=== PATIENT | female | born 1940 | race Caucasian/White ===

== ENCOUNTER 2019-08-26 12:48 | Day surgery (SDC) | payer OTHER, SELFPAY ==
[2019-08-26] VITALS (13 sets, daily range): BP systolic 127–160; BP diastolic 73–102; PULSE 81–94; RESP 12–24; TEMP 36–36.3; O2SAT 92–100
--- NOTE | 2019-08-26 13:17 | PM.PREOP ---
Pre-operative Note Interval Note History & Physical reviewed/Exam performed by Physician: Yes Changes to H&P: No
[2019-08-26] MEDS: LACTATED RINGERS 1,000 ML 42 ML IV (13:38)
--- NOTE | 2019-08-26 13:38 | SUR.PREOP ---
Patient arrived 30 minutes late for appointment. VSS. Dr Lancaster at bedside.
[2019-08-26] MEDS: CEFAZOLIN 2 GM/100 ML FROZ.PIGGY IV (14:00)
--- NOTE | 2019-08-26 14:23 | SUR.OPER ---
Supine on padded OR bed, head on pillow, arms padded and tucked at sides, legs uncrossed, safety belt at thigh, tape over blanket over lower legs .
[2019-08-26] MEDS: BUPIVACAINE 0.25% (PF) VIAL 30 ML INJ (14:28)
--- NOTE | 2019-08-26 15:44 | PM.OP.1 ---
Operative Date/Time/Diagnoses Date of procedure: 08/26/19 Time of procedure: 15:44 Pre-op diagnosis: Bilateral inguinal hernia Post-op diagnosis: same Procedure & Clinicians Procedure: Laparoscopic transabdominal preperitoneal bilateral inguinal hernia repair with mesh Same procedure as scheduled: Yes Indications: This is a 79-year-old woman with a reducible symptomatic bilateral inguinal hernia. She presents for elective laparoscopic repair Surgeon: Mansoor Lancaster Operative Notes Findings: Bilateral direct inguinal hernia defect Specimen(s): none sent Estimated Blood Loss (mL): 10 Procedure in detail: The patient was brought to the operating room and placed supine on the table. Bilateral sequential compression devices were applied. General anesthesia was induced and they were intubated with an endotracheal tube. A ball cath was placed in sterile fashion. They received 2 g ancef prior to skin incision. They were prepped and draped in sterile fashion. A time out was performed to ensure the correct patient, procedure and necessary equipment within the operating room. The skin was infiltrated with 0.25% bupivicaine. A 1 cm infra umbilical midline incision was made. The umbilical stalk was elevated the fascia sharply incised and the abdomen entered traumatically. A 10mm balloon port was placed and pneumoperitoneum was established at 15mm Hg. Insepction of the abdomen demonstrated no evidence of injury upon entry. Two 5 mm ports were then placed under direct visualization in the right and left lower quadrant lateral to the rectus muscle. A left and right direct hernias were observed. The left round ligament was identified. The peritoneum 4 cm superior to the deep inguinal ring between the medial umbilical ligament and the anterior superior iliac spine was incised. The peritoneal flap was retracted and the preperitoneal tissue was dissected off the flap beginning lateral to the inferior epigastric artery and towards the ASIS and to posterior limit of the psoas muscle to develop the lateral aspect of the pocket. Next the peritoneum medial to the inferior epigastric was mobilized towards the median umbilical ligament to develop the medial aspect of the pocket and the direct defect was reduced. The space of Retzius was fully dissected such that the Sunday's ligmament and the pubic symphysis were visible. Next, the peritoneum was mobilized off the round ligament of the uterus and the round ligament was ultimately sharpy transected to allow the mesh to sit appropriately within the pocket. A medium Bard 3D Max mesh was then placed into the abdomen and positioned such that the myopectineal orifice was completely covered with good overlap on all sides. The mesh was anchored to the pubic tubercle and to Sunday?s ligament. The peritoneal flap was then repositioned back to its original position and tacks were used to anchor it in position such that no bowel could herniate into the preperitoneal space. The area was examined for hemostasis. The right inguinal hernia was then repaired in the same fashion. The 5mm trocars were removed under direct visualization and pneumoperitoneum was deflated through the umbilical trocar, The fascia at the umbilicus was closed with 0-Vicryl in figure of 8 fashion, skin closed with 4-0 Monocyl followed by Dermabond. The sponge and instrument count at the end of the case was correct. The patient emerged from anesthsia was extubated and transferred to recovery in stable condition.
[2019-08-26] MEDS: HYDROMORPHONE 2 MG INJ 0.25 MG IV ×4 (16:02→16:25)
[2019-08-26] MEDS: fentaNYL 100 MCG/2 ML INJ 50 MCG IV ×3 (16:04→16:16)
--- NOTE | 2019-08-26 16:32 | SUR.PHASEI ---
Patient arrived in PACU complaining of discomfort. MedicatedWill continue to monitor for resolution of pain for pain relief. Patient is wide awake, restless, moaning and guarding abdomen. Will continue to monitor for resolution of pain relief.
[2019-08-26] MEDS: HYDROCODONE/ACET 5/325 TABLET 1 TAB PO ×2 (16:42→17:16)
--- NOTE | 2019-08-26 16:47 | SUR.PHASEI ---
Gave oral pain medication for continuing s/s of pain.
--- NOTE | 2019-08-26 17:19 | SUR.PHASEII ---
Gave po pain medication for c/o 8 pain.
== END 2019-08-26 17:54 | disposition home or self-care (01) ==
PROVIDERS: PCP Family Medicine; Visit Provider Surgery
PROC: 0YQ64ZZ Repair Left Inguinal Region, Percutaneous Endoscopic Approach (ICD-10-PCS; CPT 49650; principal; 2019-08-26 14:00)
DX: K40.20 Bilateral inguinal hernia, without obstruction or gangrene, not specified as recurrent (principal); I10 Essential (primary) hypertension
CPT/HCPCS: 49650; C1781; J0690; J1100; J1170; J2405; J2704; J3010

== ENCOUNTER → 2019-09-17 08:45 | Outpatient (CLI) | payer OTHER, SELFPAY ==
--- NOTE | 2019-09-17 08:48 | DI.CT.S_ITS ---
PROCEDURE: CT ABDOMEN PELVIS WO CON INDICATIONS: right groin pain TECHNIQUE: Noncontrast 5 mm thick sections acquired from the diaphragms to the symphysis. 5 mm coronal and sagittal reformats were then performed. For radiation dose reduction, the following was used: automated exposure control, adjustment of mA and/or kV according to patient size. COMPARISON: None. FINDINGS: Image quality: Excellent. ABDOMEN: Lung bases: Lung bases are clear. Heart size is normal. Coronary artery calcifications are present. Solid organs: Liver is normal in size. Gallbladder contracted. Pancreas is normal in contours. Spleen is normal in size. No adrenal nodules. Kidneys are normal in size, without hydronephrosis. Few punctate nonobstructing bilateral renal calculi. Peritoneum and bowel: Incidental colonic diverticulosis. No free fluid or air. Nodes and vessels: No retroperitoneal or mesenteric adenopathy by size criteria. Aorta and inferior vena cava are normal in caliber. Miscellaneous: No ventral hernias. PELVIS: Genitourinary: Bladder wall thickness is normal. Pessary incidentally noted Miscellaneous: Bilateral large inguinal hernias although left greater than right. Decompressed bowel loops are seen within the left inguinal hernia, and there is fluid present within the right inguinal hernia. There are also possible decompressed bowel loops at the upper aspect of the right inguinal hernia. On the left this measures up to approximately 4.3 x 5.5 cm on axial image 78 series 2. On the right, this measures up to approximately 4.6 x 3.1 cm on axial image 79 series 2. Bones: No suspicious bony lesions. No vertebral body compression fractures. Diffuse osteopenia and multilevel spondylosis. IMPRESSION: Large bilateral inguinal hernias as described above, containing bowel loops on the left, and possibly on the right. Bowel loops demonstrate decompressed appearance however technically, cannot exclude incarceration or strangulation by CT and recommend clinical correlation Incidental colonic diverticulosis. Coronary artery disease. Dictated by: Jaison Esquivel M.D. on 09/17/2019 at 9:24 Approved by: Jaison Esquivel M.D. on 09/17/2019 at 9:34
== END ==
PROVIDERS: PCP Family Medicine; Visit Provider Surgery
DX: R10.31 Right lower quadrant pain (principal); K57.90 Diverticulosis of intestine, part unspecified, without perforation or abscess without bleeding; I25.10 Atherosclerotic heart disease of native coronary artery without angina pectoris; N20.0 Calculus of kidney; K40.20 Bilateral inguinal hernia, without obstruction or gangrene, not specified as recurrent
CPT/HCPCS: 74176

== ENCOUNTER 2019-10-28 06:45 | Day surgery (SDC) | payer OTHER, SELFPAY ==
[2019-10-17 14:52] VITALS: BMI 20.1
[2019-10-28] VITALS (11 sets, daily range): BP systolic 131–158; BP diastolic 67–87; PULSE 75–84; RESP 12–23; TEMP 36.1–36.8; O2SAT 96–100; BMI 20.5
--- NOTE | 2019-10-28 | PATH_ITS ---
[facility] Accession Number: [id number] . 01 Material submitted: . PART A: hernia - CONTENTS RIGHT INGUINAL HERNIA SAC PART B: hernia - CONTENTS LEFT INGUINAL HERNIA SAC . 01 Clinical history: . OPEN ARIADNE INGUINAL HERNIA REPAIR W/MESH . 02 Diagnosis: A. Contents Right Inguinal Hernia Sac: Fibroconnective and fibroadipose tissue with reactive features and a focal mesothelial lining, consistent with hernia sac and contents. Mesh material present by gross examination. There is no evidence of malignancy. . B. Contents Left Inguinal Hernia Sac: Fibroconnective and fibroadipose tissue with reactive features, consistent with hernia sac and contents. Mesh material present by gross examination. There is no evidence of malignancy. [facility] 10/31/2019 1227 Local . 02 Electronically signed: . Viry Wells MD, Pathologist NPI- [id number] . 01 Gross description: . (A) Received in formalin, labeled contents right inguinal hernia sac, are multiple pieces of gutierrez-pink and roland-yellow rubbery fatty fibrous and membranous tissue (11.5 x 7.0 x 2.5 cm in aggregate). Some of the pieces contain an embedded clear colorless plastic mesh. Also identified is an empty cavity (up to 3.0 cm). Qc Scientist tissue submitted in cassettes A1-A3. (B) Received in formalin, labeled contents left inguinal hernia sac, is a piece of gutierrez-pink and roland-yellow fatty fibrous and membranous tissue (9.5 x 6.0 x 3.0 cm) with an embedded piece of clear colorless mesh (up to 4.5 cm). A cystic cavity (up to 7.5 cm) is identified and contains yellow clear gelatinous material. Qc Scientist tissue submitted in cassettes B1-B3. ([id number]) /MRV 10/30/2019 1459 [facility] . 02 Pathologist provided ICD-10: K40.20 . 02 CPT . 634973, [id number] Performed at: 01 [facility] [address] [place] [address], [place], [place] [id number] MD Jerzy Calderon MD Phone: [phone] Performed at: 02 [facility] [address] [place], [place] [id number] MD Alanna Elizondo MD Phone: [phone]
[2019-10-28] MEDS: LACTATED RINGERS 1,000 ML 100 ML IV (07:23)
--- NOTE | 2019-10-28 07:29 | PM.HP.1 ---
History of Present Illness History of Present Illness Date Patient Seen: 10/28/19 Time Patient Seen: 07:29 Chief complaint: [id number] OPEN ARIADNE INGUINAL HERNIA REPAIR W/MESH Narrative: This is a 79-year-old woman with bilateral recurrence at inguinal hernia presents for open bilateral inguinal hernia repair with mesh. She underwent a previous transabdominal preperitoneal bilateral repair couple months ago and shortly developed recurrence. She has some mild chronic right groin pain otherwise she is in no acute distress. She is in a usual state of health in the been no interval changes. Patient History Medical History Arthritis (Acute) Constipation (Acute) HLD (hyperlipidemia) (Acute) HTN (hypertension) (Acute) Hypoglycemia (Acute) Migraine headache (Acute) Pelvic relaxation (Acute) Pneumonia (Acute) Pre-diabetes (Acute) Surgical History History of bilateral inguinal hernia repair (Acute 08/26/19) History of tonsillectomy and adenoidectomy (Acute ~1945) Hx of cone biopsy of cervix (Acute ~1997) Hx of dilation and curettage (Acute) Family & Social History Social History: household members spouse Tobacco & Substance use: Smoking Status Never smoker alcohol intake current Substance Use Type does not use Meds Home Medications and Allergies Home Medications Medication Instructions Recorded Confirmed Type losartan 25 mg tablet 25 mg PO DAILY 08/20/19 10/28/19 History acetaminophen [Tylenol] 650 mg PO QID PRN #60 cap 08/26/19 10/28/19 Rx Allergies Allergy/AdvReac Type Severity Reaction Status Date / Time naproxen [NAPROXEN] Allergy Mild Hives Verified 10/28/19 07:11 epinephrine [EPINEPHRINE] AdvReac Mild Agitated Verified 10/28/19 07:11 lisinopril AdvReac Mild Dizzy, Verified 10/28/19 07:11 stomach ache, fast heart beat, runny nose, fatigue Penicillins AdvReac Mild Vomiting Verified 10/28/19 07:11 procaine [PROCAINE] AdvReac Mild Giddy Verified 10/28/19 07:11 Review of Systems Review of Systems Narrative: A complete review of systems is negative except as noted in the HPI Exam Vital Signs (past 8 hours): - 10/28/19 07:13 Temperature 97.0 F L Pulse Rate 75 Respiratory Rate 16 Blood Pressure 158/87 H Pulse Oximetry 98 Oxygen Delivery Method Room Air Narrative Exam Narrative: General-no acute distress, well nourished HEENT-moist mucous membranes, no scleral icterus Neck-supple, no lymphadenopathy Chest- non labored respirations, clear to auscultation bilaterally Cardiac-regular rate no peripheral edema Abdomen-soft, bilateral inguinal hernia, nontender Extremities-warm, well perfused Neurological-alert and oriented, no focal deficits Assessment & Plan Assessment and plan (1) Bilateral inguinal hernia: Current visit: No Status: Acute Assessment & Plan narrative: 79-year-old woman with bilateral recurrent inguinal hernia status post laparoscopic repair presents for open repair with mesh. We discussed the risks of the operation including recurrence bleeding infection chronic pain. Her questions have been answered and she is in agreement with this plan.
[2019-10-28] MEDS: CLINDAMYCIN 900 MG/50 ML PIGGYBACK 50 MG IV (07:45)
--- NOTE | 2019-10-28 07:59 | SUR.OPER ---
Supine on padded OR bed, head on pillow, arms secured on padded arm boards at <90 degrees abduction, legs uncrossed, safety belt at thigh, tape over blanket over lower legs.
[2019-10-28] MEDS: BUPIVACAINE 0.25% (PF) VIAL 30 ML INJ (08:03)
[2019-10-28] MEDS: LACTATED RINGERS 1,000 ML 42 ML IV (09:11)
--- NOTE | 2019-10-28 10:10 | PM.OP.1 ---
Operative Date/Time/Diagnoses Date of procedure: 10/28/19 Time of procedure: 10:10 Pre-op diagnosis: Recurrent bilateral inguinal hernia Post-op diagnosis: same Procedure & Clinicians Procedure: Open recurrent bilateral inguinal hernia with mesh Same procedure as scheduled: Yes Indications: This is a 79-year-old woman who underwent a transabdominal preperitoneal bilateral inguinal hernia repair for large direct defects 3 months ago who developed early recurrence bilaterally. She presents today for elective open bilateral inguinal hernia repair with mesh. Surgeon: Mansoor Lancaster Click Yes if Unassisted: Yes Anesthesia Type: General Operative Notes Findings: Bilaterally direct recurrent defects with a large fluid collections involving the mesh and hernia sac. Specimen(s): other (Bilateral hernia sac) Estimated Blood Loss (mL): 20 Procedure in detail: The patient was brought to the operating room and placed supine on the table. Bilateral lower extremity compression devices were applied. General anesthesia was induced and she was intubated with an LMA. She was then prepped and draped in usual sterile fashion. They received 2 g of Ancef prior to skin incision. A time-out was performed ensure the correct patient procedure necessary equipment within the operating room. 2 finger breath above the right inguinal ligament the skin was infiltrated with 0.25% bupivacaine. The skin incision was made here and the subcutaneous tissues were divided with electrocautery. The external oblique aponeurosis was exposed. The external oblique aponeurosis was then opened along the direction of its fibers. A large direct floor defect was identified. There was a mass of peritoneum, fluid collection and previous hernia mesh coming through the floor of the canal. This was meticuluously excised back to healthy peritoneum. The peritoneum was then closed with a running 3-0 vicryl suture. The floor was then reapproximated using interupted 0 prolene suture. I selected the large Pro Loop hernia mesh. The inferior medial aspect of the mesh was anchored to the periosteum of the pubic tubercle with 0 Prolene and then was run continuously along the inferior edge of the mesh to the shelving edge of the inguinal ligament. Interrupted 0 Prolene suture was used to anchor the superior aspect of the mesh to the conjoined tendon in several places. The tails were then reapproximated around the spermatic cord loosely. The lateral aspect of the mesh was then tucked under the external oblique aponeurosis. The repair was checked for hemostasis. The wound was irrigated with sterile saline. The external oblique aponeurosis was reapproximated in a running fashion using 3 0 Vicryl. The subcutaneous tissues were reapproximated with 3 0 Vicryl skin closed with 4 0 Monocryl followed by the application of Dermabond. The left inguinal hernia was then approached. The external oblique aponeurosis was exposed. The external oblique aponeurosis was then opened along the direction of its fibers. A large direct floor defect was identified. There was a mass of peritoneum, fluid collection and previous hernia mesh again coming through the floor of the canal. This was meticuluously excised back to healthy peritoneum. The peritoneum was then closed with a running 3-0 vicryl suture. The floor was then reapproximated using interupted 0 prolene suture. I selected the large Pro Loop hernia mesh. The inferior medial aspect of the mesh was anchored to the periosteum of the pubic tubercle with 0 Prolene and then was run continuously along the inferior edge of the mesh to the shelving edge of the inguinal ligament. Interrupted 0 Prolene suture was used to anchor the superior aspect of the mesh to the conjoined tendon in several places. The tails were then reapproximated around the spermatic cord loosely. The lateral aspect of the mesh was then tucked under the external oblique aponeurosis. The repair was checked for hemostasis. The wound was irrigated with sterile saline. The external oblique aponeurosis was reapproximated in a running fashion using 3 0 Vicryl. The subcutaneous tissues were reapproximated with 3 0 Vicryl skin closed with 4 0 Monocryl followed by the application of Dermabond. The sponge instrument count at the end operation was correct. The patient emerged from anesthesia was extubated and transferred to the postoperative care unit in stable condition Complications: none Post-operative Condition: stable Disposition: same day surgery
[2019-10-28] MEDS: ONDANSETRON 4 MG/2 ML INJ IV (10:15)
[2019-10-28] MEDS: OXYCODONE/ACETAMINOPHEN 5/325 TABLET 1 TAB PO ×2 (10:15→10:48)
--- NOTE | 2019-10-28 10:18 | SUR.PHASEI ---
Patient awake, eating apple sauce and drinking orange juice. Medicated for pain with percocet one tab and gave zofran 4 mg IV to prevent post-op nausea.
--- NOTE | 2019-10-28 10:36 | SUR.PHASEII ---
pt arrived to phase II via stretcher. pt sitting up and drinking juice. Surgical sites observed to be c/d/i. IV site clear and infusing without difficultly. Bed in lowest position and call light given to pt.
--- NOTE | 2019-10-28 11:52 | SUR.PHASEII ---
left and returned with meds for pt. Pt denied nausea stated pain was tolerable and incisions with surgical glue c/d/i.
== END 2019-10-28 12:00 | disposition home or self-care (01) ==
PROVIDERS: PCP Family Medicine; Visit Provider Surgery
PROC: (CPT 49520; principal; 2019-10-28 07:45)
DX: K40.21 Bilateral inguinal hernia, without obstruction or gangrene, recurrent (principal); E78.5 Hyperlipidemia, unspecified; I10 Essential (primary) hypertension; R73.03 Prediabetes
CPT/HCPCS: 49520; C1781; J1100; J1885; J2405; J2704; J3010